=== PATIENT | female | born 1985 ===

== ENCOUNTER 2023-01-03 09:24 | Outpatient (CLI) | payer OTHER | END 2023-01-03 09:42 | disposition home or self-care (01) | LOC: RX STUDY 09:24 | PROVIDERS: ATTEND Obstetrics & Gynecology Gynecology | DX: N97.1 Female infertility of tubal origin (principal); Z31.41 Encounter for fertility testing; R10.2 Pelvic and perineal pain; D25.1 Intramural leiomyoma of uterus ==